=== PATIENT | female | born 1965 | race Caucasian/White ===

== ENCOUNTER 2016-08-14 15:00 | Emergency (ER) | payer OTHER ==
[~2016-08-14] VITALS: Ht 162.6 cm; Wt 129.7 kg
[~2016-08-14 15:00] MED LIST: ACETAMINOPHEN-1 EAC1 PO; AMLODIPINE BESYL5 MG PO; BUTALB-APAP-CA1 EACH PO; CARISOPRODOL 3350 MG PO; CLONAZEPAM 1 MG1 M1 PO; DITROPAN XL5 M1 PO; DOXYCYCLINE 10100 MG PO; FLONASE 0.05%50 MCG NASAL; LIPITOR10 MG PO; LORTAB 5-325 M1 EACH PO; LUVOX 50MG TABL50 M1 PO; MICARDIS HCT 81 EACH PO; NASACORT10.8 ML NS; NECON1 EAC1 PO; PERCOCET 5-3251 EACH PO; PROAIR HFA8.5 GM INH; ROBITUSSIN100 MG/53 PO; SINGULAIR 10 MG10 M1 PO; SUMATRIPTAN20 MG NS; SYMBICORT160 MCG/4. INH
[2016-08-14] MEDS ORDERED: ZANTAC 150MG T150 MG PO (15:16)
[2016-08-14] MEDS ORDERED: PREDNISONE 20 M20 MG PO (15:16)
[2016-08-14 16:27] VITALS: BP 143/67
== END 2016-08-14 16:29 | disposition home or self-care (01) ==
LOC: ER 15:00
DX: T63.441A Toxic effect of venom of bees, accidental (unintentional), initial encounter (principal); Y92.89 Other specified places as the place of occurrence of the external cause; J45.909 Unspecified asthma, uncomplicated; I10 Essential (primary) hypertension; E78.5 Hyperlipidemia, unspecified; F41.9 Anxiety disorder, unspecified; F10.99 Alcohol use, unspecified with unspecified alcohol-induced disorder; Z88.8 Allergy status to other drugs, medicaments and biological substances; Z88.0 Allergy status to penicillin; Z88.2 Allergy status to sulfonamides; Z91.030 Bee allergy status; Z87.891 Personal history of nicotine dependence